=== PATIENT | female | born 1960 | race American Indian/Alaskan Native ===

== ENCOUNTER 2020-10-09 04:30 | Emergency (ER) | payer OTHER ==
--- NOTE | 2020-10-09 05:34 | XRay Report ---
XR chest 1V ap INDICATION / CLINICAL INFORMATION: Chest Pain. COMPARISON: None available. FINDINGS: SUPPORT DEVICES: None. HEART /PULMONARY VASCULATURE: No significant abnormality. LUNGS / PLEURA: No significant pulmonary or pleural abnormality. No pneumothorax. ADDITIONAL FINDINGS: No significant additional findings. IMPRESSION: 1. No acute findings. Signer Name: Augustine Walsh MD Signed: 10/09/2020 5:29 AM Workstation Name: [id number]
[2020-10-09 05:50] LABS: Basophils % (Auto) 0.7 % (0.0-1.8); Eosinophils # (Auto) 0.2 K/mm3 (0.0-0.4); Eosinophils % (Auto) 4.3 % (0.0-4.3); Hematocrit 33.2 % (30.3-42.9); Hemoglobin 10.8 gm/dl (10.1-14.3); Lymphocytes # (Auto) 1.7 K/mm3 (1.2-5.4); Lymphocytes % (Auto) 29.8 % (13.4-35.0); Mean Corpuscular HGB Conc 33 % (30-34); Mean Corpuscular Volume 89 fl (79-97); Monocytes # (Auto) 0.4 K/mm3 (0.0-0.8); Monocytes % (Auto) 6.4 % (0.0-7.3); Platelet Count 263 K/mm3 (140-440); Red Blood Count 3.73 M/mm3 (3.65-5.03); Red Cell Distribution Width 13.5 % (13.2-15.2)
[2020-10-09 06:05] LABS: BUN/Creatinine Ratio 15; Blood Urea Nitrogen 24 mg/dL (7-17); Calcium 9.4 mg/dL (8.4-10.2); Hemolysis Index 4
[2020-10-09 07:43] LABS: INR 0.96 (0.87-1.13)
[2020-10-09 07:44] LABS: Partial Thromboplastin Time 27.2 Sec. (24.2-36.6)
[2020-10-09] MEDS ORDERED: FUROSEMIDE 40 MG/4 ML INJ IV ONE (08:01)
[2020-10-09] MEDS ORDERED: INSULIN REGULAR, HUMAN 100 UNITS/1 ML IV ONE (08:01)
--- NOTE | 2020-10-09 08:06 | Emergency Department Report ---
ED Shortness of Breath HPI - General Chief Complaint: Dyspnea/Respdistress Stated Complaint: EMMETT Time Seen by Provider: 10/09/20 07:44 Source: patient Mode of arrival: Ambulatory Limitations: No Limitations - History of Present Illness Initial Comments: Patient is 60 years old female with history of hypertension. Patient presented to the ER complaining of shortness of breath for approximately 1 month. Patient stated the symptoms has been getting worse for the last few days. Patient stated that her symptoms is most severe when she lay down flat and she have to use multiple pillows. Patient denied any chest pain or lower extremity edema. Patient denied any recent immobilization. Patient also denied any fever or cough. MD Complaint: shortness of breath -: Gradual, week(s) Consistency: constant - Related Data Allergies Allergy/AdvReac Type Severity Reaction Status Date / Time No Known Allergies Allergy Unverified 10/09/20 04:52 ED Review of Systems ROS: Stated complaint: EMMETT Other details as noted in HPI Comment: All other systems reviewed and negative Constitutional: denies: chills, fever Respiratory: orthopnea, shortness of breath, SOB with exertion, SOB at rest. denies: cough, wheezing Cardiovascular: denies: chest pain, palpitations Gastrointestinal: denies: abdominal pain, nausea, vomiting Musculoskeletal: denies: back pain Neurological: denies: headache, weakness, numbness, paresthesias, confusion, abnormal gait ED Past Medical Hx - Past Medical History Previous Medical History?: Yes Hx Hypertension: Yes Hx Diabetes: Yes - Surgical History Past Surgical History?: Yes Additional Surgical History: Partial Hysterectomy - Social History Smoking Status: Never Smoker Substance Use Type: None ED Physical Exam - General Limitations: No Limitations General appearance: alert, in no apparent distress - Head Head exam: Present: atraumatic, normocephalic, normal inspection - Eye Eye exam: Present: normal appearance, PERRL - ENT ENT exam: Present: normal exam, normal orophraynx, mucous membranes moist - Neck Neck exam: Present: normal inspection, full ROM. Absent: tenderness, meningismus - Respiratory Respiratory exam: Present: normal lung sounds bilaterally - Cardiovascular Cardiovascular Exam: Present: regular rate, normal rhythm, normal heart sounds - GI/Abdominal GI/Abdominal exam: Present: soft, normal bowel sounds. Absent: distended, tenderness, guarding, rebound, rigid, organomegaly, mass, bruit, pulsatile mass, hernia - Extremities Exam Extremities exam: Present: normal inspection, full ROM, normal capillary refill. Absent: tenderness, pedal edema, joint swelling, calf tenderness - Back Exam Back exam: Present: normal inspection, full ROM. Absent: CVA tenderness (R), CVA tenderness (L) - Neurological Exam Neurological exam: Present: alert, oriented X3, CN II-XII intact. Absent: motor sensory deficit - Psychiatric Psychiatric exam: Present: normal mood - Skin Skin exam: Present: warm, intact, normal color ED Course Vital Signs 10/09/20 10/09/20 10/09/20 04:42 09:52 11:49 Temperature 98.1 F Pulse Rate 81 86 76 Respiratory 18 20 18 Rate Blood Pressure 190/95 Blood Pressure 179/94 130/75 [Left] O2 Sat by Pulse 99 97 99 Oximetry ED Medical Decision Making - Lab Data Result diagrams: 10/09/20 05:35 10/09/20 05:35 - EKG Data -: EKG Interpreted by Ok EKG shows normal: sinus rhythm Rate: normal - EKG Data Interpretation: no acute changes - Radiology Data Radiology results: report reviewed - Medical Decision Making Patient is 60 years old female with history of hypertension. Patient presented to the ER complaining of shortness of breath for approximately 1 month. Patient stated the symptoms has been getting worse for the last few days. Patient stated that her symptoms is most severe when she lay down flat and she have to use multiple pillows. Patient denied any chest pain or lower extremity edema. Patient denied any recent immobilization. Patient also denied any fever or cough. Patient EKG is unremarkable. Chest x-ray is negative for acute finding. Patient symptoms consistent with congestive heart failure. Patient received Lasix 40 mg IV. Patient symptom improved significantly. Patient given prescription for Lasix and advised to follow-up with [facility] in the next 2 to 3 days for further management. Critical care attestation.: If time is entered above; I have spent that time in minutes in the direct care of this critically ill patient, excluding procedure time. ED Disposition Clinical Impression: Shortness of breath, Acute hyperglycemia, Malignant hypertension Disposition: - TO HOME OR SELFCARE Is pt being admited?: No Condition: Stable Instructions: Hypertension (ED), Shortness of Breath, Adult, [id number] Referrals: PRIMARY CARE, [Primary Care Provider] - 3-[facility] - [facility] Days
[2020-10-09] MEDS ORDERED: cloNIDine 0.1 MG TAB PO ONE (10:03)
[2020-10-09 13:48] VITALS: BP 136/76
== END 2020-10-09 13:49 | disposition home or self-care (01) ==
LOC: ED 04:30
DX: E11.65 Type 2 diabetes mellitus with hyperglycemia (principal); I10 Essential (primary) hypertension; R06.02 Shortness of breath; Z98.890 Other specified postprocedural states
CPT/HCPCS: 36415; 71045; 80048; 82962; 83880; 84484; 85025; 85610; 85730; 93005; 96374; 96375; 99284; J1940; J1815